=== PATIENT | female | born 1965 | race Caucasian/White ===

== ENCOUNTER 2017-04-20 16:44 | Outpatient (CLI) | payer OTHER ==
[2011-02-11 08:07] VITALS: BMI 29.2
== END 2017-04-20 17:24 ==
LOC: D.MAMMO 16:44
DX: Z12.31 Encounter for screening mammogram for malignant neoplasm of breast (principal)

== ENCOUNTER → 2018-12-01 08:00 | Outpatient (CLI) | payer BC ==
[2011-02-11 08:07] VITALS: BMI 29.2
== END | disposition home or self-care (01) ==
LOC: D.MAMMO 08:00
DX: Z12.31 Encounter for screening mammogram for malignant neoplasm of breast (principal)

== ENCOUNTER → 2021-01-06 17:41 | Outpatient (CLI) | payer BC ==
[2011-02-11 08:07] VITALS: BMI 29.2
== END | disposition home or self-care (01) ==
LOC: D.LABREF 17:41
PROVIDERS: ATTEND Emergency Medicine
DX: K59.09 Other constipation (principal)

== ENCOUNTER 2021-01-20 16:00 | Outpatient (CLI) | payer BC ==
[2011-02-11 08:07] VITALS: BMI 29.2
== END 2021-01-20 23:59 | disposition home or self-care (01) ==
LOC: D.MAMMO 16:00
PROVIDERS: ATTEND Emergency Medicine
DX: Z12.31 Encounter for screening mammogram for malignant neoplasm of breast (principal)

== ENCOUNTER → 2021-01-28 12:58 | Outpatient (CLI) | payer BC ==
[2011-02-11 08:07] VITALS: BMI 29.2
== END | disposition home or self-care (01) ==
LOC: D.US 12:58
PROVIDERS: ATTEND Emergency Medicine
DX: R92.8 Other abnormal and inconclusive findings on diagnostic imaging of breast (principal)